=== PATIENT | female | born 1950 | race Caucasian/White ===

== ENCOUNTER → 2020-05-20 17:41 | Outpatient (CLI) | payer MEDICARE, SELFPAY ==
--- NOTE | ~2020-05-20 | MM_ITS ---
EXAMINATION: MM screening [facility] BI w giselle HISTORY: Screening mammogram TECHNIQUE: Craniocaudal and mediolateral oblique 3-D tomosynthesis images were obtained and synthetic 2-D images were generated. CAD analysis was submitted and interpreted. COMPARISON: 11/08/2018, 01/26/2017 BREAST PARENCHYMAL COMPOSITION: There are scattered areas of fibroglandular density. FINDINGS: Scattered benign-appearing calcifications are present. There is no evidence of suspicious m ass, calcification, or architectural distortion to suggest malignancy in either breast. There has bee n no suspicious interval change. IMPRESSION: 1. No mammographic evidence of malignancy. 2. Recommend routine screening mammography in one year. BI-RADS Category 2: Benign finding(s). Reviewed, dictated and finalized at location A. MAKER
== END ==
PROVIDERS: PCP Family Medicine; Visit Provider Obstetrics & Gynecology
DX: Z12.31 Encounter for screening mammogram for malignant neoplasm of breast (principal)
CPT/HCPCS: 77063; 77067

== ENCOUNTER → 2020-11-11 13:25 | Outpatient (CLI) | payer MEDICARE, SELFPAY ==
--- NOTE | ~2020-11-11 | DEXA_ITS ---
Bone Density Report Name: Lillian Segovia Age: 70 Sex: Female Ethnicity: White Date of : 1950 Indication: osteopenia; monitoring treatment; height loss; postmenopausal Referring Provider: Kristi Mejia Study: Bone densitometry was performed. Exam Date: November 11, 2020 Accession number: [id number] Bone Density: Region BMD T-score Z-score Classification AP Spine (L1, L4) 1.240 1.8 3.8 Normal Femoral Neck (Left) 0.729 -1.1 0.6 Osteopenia Total Hip (Left) 0.811 -1.1 0.3 Osteopenia Femoral Neck (Right) 0.754 -0.9 0.8 Normal Total Hip (Right) 0.817 -1.0 0.4 Normal Total Hip Mean 0.814 -1.1 0.4 Osteopenia World Health Organization criteria for BMD impression classify patients as: Normal (T-score at or above -1.0), Osteopenia (T-score between -1.0 and -2.5), or Osteoporosis (T-score at or below -2.5). 10-year Fracture Risk: FRAX not reported because: Treated for osteoporosis Previous Exams: Region Exam Age BMD T-score BMD Change BMD Change Date g/cm2 vs Baseline vs Previous AP Spine(L1, L4) 11/11/2020 70 1.240 1.8 0.053 0.053 11/08/2018 68 1.186 1.4 Total Hip(Left) 11/11/2020 70 0.811 -1.1 0.045 0.045 11/08/2018 68 0.766 -1.4 Total Hip(Right) 11/11/2020 70 0.817 -1.0 0.028 0.028 11/08/2018 68 0.789 -1.3 *Denotes significance at 95% confidence level, LSC for AP Spine = 0.022 g/cm2, LSC for Total Hip = 0.027 g/cm2 Clinical Information Provided by Patient: Is being treated for osteoporosis Has used the following medications: HRT (i.e. estrogen/hormone therapy), Vitamin D, Calcium Patient maximum height was 66 Menopause Age: 56 Onset of menses at age 14 Number of children 2 Impression: The patient has low bone mass, based on the Left Total Hip T-score. No significant bone loss was observed. Discussion: PATIENT UNDER TREATMENT WITH NO SIGNIFICANT BMD LOSS SINCE LAST EXAM. In an untreated patient, BMD typically declines with age. A lack of decline or gain is usually a sign that treatment is efficacious and fracture risk is reduced. It is important to ask patients whether they are taking their medications and to encourage continued and appropriate compliance with their osteoporosis therapies to reduce fracture risk. It is also important to review their risk factors and encourage appropriate calcium and vitamin D intakes, exercise, fall prevention and other lifestyle measures.
== END ==
PROVIDERS: Visit Provider Student in an Organized Health Care Education/Training Program
DX: Z78.0 Asymptomatic menopausal state (principal); M85.852 Other specified disorders of bone density and structure, left thigh; M85.851 Other specified disorders of bone density and structure, right thigh
CPT/HCPCS: 77080

== ENCOUNTER → 2021-07-09 14:20 | Outpatient (CLI) | payer MEDICARE, SELFPAY ==
--- NOTE | ~2021-07-09 | MM_ITS ---
EXAMINATION: MM screening [facility] BI w giselle HISTORY: Screening mammogram TECHNIQUE: Craniocaudal and mediolateral oblique 3-D tomosynthesis images were obtained and synthetic 2-D images were generated. CAD analysis was submitted and interpreted. COMPARISON: 05/2020, 11/08/2018, 01/26/2017 bilateral screening mammogram examinations BREAST PARENCHYMAL COMPOSITION: There are scattered areas of fibroglandular density. FINDINGS: There is no evidence of suspicious mass, calcification, or architectural distortion to sugg est malignancy in either breast. There has been no suspicious interval change. IMPRESSION: 1. No mammographic evidence of malignancy. 2. Recommend routine screening mammography in one year. BI-RADS Category 1: Negative Reviewed, dictated and finalized at location A. E AIDE
== END ==
PROVIDERS: Visit Provider Student in an Organized Health Care Education/Training Program
DX: Z12.31 Encounter for screening mammogram for malignant neoplasm of breast (principal)
CPT/HCPCS: 77063; 77067

== ENCOUNTER → 2023-02-22 13:10 | Outpatient (CLI) | payer MEDICARE, SELFPAY ==
--- NOTE | ~2023-02-22 | DEXA_ITS ---
Bone Density Report Name: NELSON MENDOZA Age: 72 Sex: Female Ethnicity: White Date of : 1950 Indication: osteopenia; height loss; postmenopausal Referring Provider: Kristi Mejia Study: Bone densitometry was performed. Exam Date: February 22, 2023 Accession number: [id number] Bone Density: Region BMD T-score Z-score Classification AP Spine (L1, L4) 1.306 2.4 4.6 Normal Femoral Neck (Left) 0.752 -0.9 0.9 Normal Total Hip (Left) 0.833 -0.9 0.6 Normal Femoral Neck (Right) 0.788 -0.5 1.3 Normal Total Hip (Right) 0.848 -0.8 0.7 Normal Total Hip Mean 0.841 -0.9 0.7 Normal World Health Organization criteria for BMD impression classify patients as: Normal (T-score at or above -1.0), Osteopenia (T-score between -1.0 and -2.5), or Osteoporosis (T-score at or below -2.5). 10-year Fracture Risk: FRAX not reported because: All T-scores for Spine Total, Hip Total, Femoral Neck at or above -1.0 Previous Exams: Region Exam Age BMD T-score BMD Change BMD Change Date g/cm2 vs Baseline vs Previous AP Spine(L1, L4) 02/22/2023 72 1.306 2.4 0.120* 0.066 11/11/2020 70 1.240 1.8 0.053 0.053 11/08/2018 68 1.186 1.4 Total Hip(Left) 02/22/2023 72 0.833 -0.9 0.068* 0.022 11/11/2020 70 0.811 -1.1 0.045 0.045 11/08/2018 68 0.766 -1.4 Total Hip(Right) 02/22/2023 72 0.848 -0.8 0.058* 0.030 11/11/2020 70 0.817 -1.0 0.028 0.028 11/08/2018 68 0.789 -1.3 *Denotes significance at 95% confidence level, LSC for AP Spine = 0.022 g/cm2, LSC for Total Hip = 0.027 g/cm2 Clinical Information Provided by Patient: Has used the following medications: HRT (i.e. estrogen/hormone therapy), Vitamin D, Calcium, ended HRT 06/08 Patient maximum height was 66 Menopause Age: 56 No regular weight bearing exercise Does not regularly consume dairy products Onset of menses at age 14 Number of children 2 Impression: The patient has normal bone mass. No significant bone loss was observed. Discussion: BONE DENSITY IS ABOVE THE MINIMUM DESIRABLE LEVEL AT ALL SKELETAL SITES TESTED. This patient?s bone mineral density is above the minimum desirable level (T-score -1.0 or better) at all sites measured. The patient should follow a healthful lifestyle (good nutrition with adequate calcium and vitamin D, and appropriate weight-bearing exercise).
--- NOTE | ~2023-02-22 | MM_ITS ---
EXAMINATION: MM screening [facility] BI w giselle HISTORY: Screening mammogram TECHNIQUE: Craniocaudal and mediolateral oblique 3-D tomosynthesis images were obtained and synthetic 2-D images were generated. CAD analysis was submitted and interpreted. COMPARISON: July 09, 2021, May 20, 2020, November 08, 2018 bilateral screening mammogram examinati ons BREAST PARENCHYMAL COMPOSITION: There are scattered areas of fibroglandular density. FINDINGS: There is no evidence of suspicious mass, calcification, or architectural distortion to sugg est malignancy in either breast. There has been no suspicious interval change. IMPRESSION: 1. No mammographic evidence of malignancy. 2. Recommend routine screening mammography in one year. BI-RADS Category 1: Negative Reviewed, dictated and finalized at location A.
== END ==
PROVIDERS: PCP Family Medicine; Visit Provider Family Medicine
DX: Z12.31 Encounter for screening mammogram for malignant neoplasm of breast (principal); Z78.0 Asymptomatic menopausal state
CPT/HCPCS: 77063; 77067; 77080

== ENCOUNTER 2023-06-30 14:15 | Outpatient (RCR) | payer MEDICARE, SELFPAY ==
--- NOTE | 2023-06-03 08:57 | OPREHPOC ---
Outpatient Therapy Plan of Care This is a Multidisciplinary Plan of Care that may contain components documented by all disciplines (PT, OT, and ST.) PT Problem 1 PT Problem #1 Knowledge Deficit PT Goal 1 Goal 1* indep with HEP PT Problem 2 PT Problem #2 Pain PT Goal 1 Goal 1* pt report NO pain in R lateral knee 2* with palpation over R ITB, minimal spasms noted PT Problem 3 PT Problem #3 Impaired Flexibility PT Goal 1 Goal increase flexibility of R hip and knee, to improve position of knee 1* anterior hip-quad length with prone knee flexion to 110' 2* prone hip extension 5' PT Problem 4 PT Problem #4 Impaired Strength PT Goal 1 Goal increase strength of R hip and knee, to improve mobility and support to knee/hip joints 1* mat exercises x 20 reps with good control
--- NOTE | 2023-06-03 08:57 | PTOPEVAL1 ---
Assessment and note entered by Yeni Taylor, PT Evaluation Information Assessment Status Evaluation Diagnosis R knee pain Onset Mar 2023 Subjective Information tightness and pain in R knee; sometimes feels funny; can do everything, but it hurts; saw and xrays were perfect- told her tendonitis; no trauma or injury to leg; Activity level--indep with all home and self care tasks; is not doing any leg exercises; have not been as active lately, have exercise bike in the garage, going to get it moved into the house Reported Pain Level Pain Score Self Report Additional Pain Score Comments pain range in the past week 0-1/10, sharp shooting pain over R lateral knee, short duration annoying pain, sometimes up side of leg to hip; stiff and tight-- no pattern for shooting pain; just wait a minute and pain gone; no issues with sleeping; not using heat, ice or meds- instruct on PRN use of heat 10-15 min with walking, no issues with knee, but limited by L ankle arthritis Assessment PT Clinical Summary Lillian has the diagnosis of R knee pain. Her history includes TKR, with gradual increase in knee pain, no trauma or injury to leg. She is active and able to do all of her activities, but knee pain is annoying. Also has arthritis in L ankle which limits her walking time. She does work in office work 4 hours/day. Self assessment with the LE functional scale score of 69/80. With the evaluation, she has poor standing position of LE's; tightness & pain over R ITB, anterior hip-quad, with weakness of both R and L LE's; Skilled PT services are indicated for modalities to decrease pain and tightness over R ITB; therapeutic exercises to increase strength and flexibility of hip and education for HEP and posture correction. Plan of Care Interventions Electrical Stimulation,Hot Pack/Cold Pack,Manual Therapy,Neuro Re-education,Patient Education,Thera
--- NOTE | 2023-06-30 14:49 | PTOPDC ---
Assessment and note entered by Yeni Taylor, PT Discharge Information Assessment Status Discharge Diagnosis R knee pain Onset Mar 2023 Subjective Information am doing much better, knee not tight; have been doing exercises at home; have been using massage gun on the side of leg and it helps, not as tender over the side muscle; Reported Pain Level Pain Score 0: Self Report Additional Pain Score Comments no pain in the past week; with pressure over lateral distal ITB and hamstring distal lateral, pain increase to 5/10; Assessment PT Clinical Summary Lillian has received a total of 8 PT sessions. Compared to the initial evaluation: pain is decreased lateral thigh and knee, but still has spasms and tenderness over mid to distal ITB and distal lateral hamstring; increase flexibility of anterior hip/quad with prone knee flexion- now equal to R and 105';still have decreased hip extension ROM; increase strength with mat and standing exercises; education completed for HEP and self management of pain. The goals were achieved, except R hip extension ROM and anterior hip/quad length with prone knee flexion. Discharge PT services. She is to continue with her HEP. Plan of Care PT Services Indicated No
== END 2023-06-30 14:57 | disposition home or self-care (01) ==
LOC: ANHPT 14:15
PROVIDERS: PCP Family Medicine
DX: M25.561 Pain in right knee (principal)
CPT/HCPCS: 97110; 97140; 97161; 97530

== ENCOUNTER 2024-03-21 01:08 | Day surgery (SDC) | payer MEDICARE, SELFPAY ==
[2024-03-10 09:58] VITALS: BMI 34.3
[2024-03-21 08:24] VITALS: BP 155/94; PULSE 63; RESP 18; TEMP 36.2; O2SAT 100
[2024-03-21] MEDS: LACTATED RINGERS 1,000 ML 150 ML IV CONT (08:36)
--- NOTE | 2024-03-21 09:00 | WPDANESEPPF ---
Anes - Initial Pre Proc Eval Procedure: Operation Date: 03/21/24 09:30 Proposed Procedures p Colonoscopy - Yovanny Landa MD Date/Time: 03/21/24 09:00 Surgeon: Yovanny Landa MD Pre Op Diagnosis: Personal history colon polyps Patient Data Age: 73 Gender: F Height: 1.63 m Weight: 90.1 kg Last Vital Signs Temp 36.2 C L 03/21/24 08:24 Pulse 63 03/21/24 08:24 Resp 18 03/21/24 08:24 BP 155/94 H 03/21/24 08:24 Pulse Ox 100 03/21/24 08:24 O2 Del Method Room Air 03/21/24 08:24 Allergies Allergy/AdvReac Type Severity Reaction Status Date / Time No Known Allergies Allergy Verified 03/21/24 08:22 Home Medications Medication Instructions Recorded Confirmed Type mecobalamin (vitamin B12) 1,000 1,000 mcg sublingual DAILY 04/10/19 03/21/24 History mcg disintegrating tablet,sublingual vitamin B complex (Super B-50 1 cap PO DAILY 04/10/19 03/21/24 History Complex capsule) cholecalciferol (vitamin D3) 125 125 mcg PO DAILY 03/05/20 03/21/24 History mcg (5,000 unit) capsule calcium carbonate 600 mg PO DAILY 10/22/20 03/21/24 History losartan 100 mg tablet See Rx Instructions .Route 05/03/23 03/21/24 Rx .COMPLEX #90 tabs pantoprazole 40 mg tablet,delayed 40 mg PO QAM #90 tabs 08/05/23 03/21/24 Rx release rosuvastatin 5 mg tablet See Rx Instructions .Route 09/28/23 03/21/24 Rx .COMPLEX #90 tabs metoprolol succinate 25 mg 25 mg PO DAILY #90 tabs 02/14/24 03/21/24 Rx tablet,extended release 24 hr magnesium 250 mg tablet 250 mg PO DAILY 03/10/24 03/21/24 History turmeric 400 mg capsule 800 mg PO DAILY 03/10/24 03/21/24 History Patient hx anesthesia problems: none Family hx anesthesia problems: none Results Review: All pre-operative results and documents have been reviewed as part of the pre-operative evaluation. [facility] Past Medical History Medical History Chronic GERD Essential hypertension Hormone replacement therapy (HRT) Hypertensive CKD (chronic kidney disease) Osteopenia determined by x-ray Surgical History Surgical History History of bilateral knee replacement History of colonoscopy with polypectomy 11/29/2018 Family History Family History Father Family history of malignant neoplasm Mother Breast cancer Social History Social History Smoking status: Former smoker Tobacco type: cigarettes Second hand tobacco smoke exposure: No Smoking end date: 05/17/78 Alcohol intake: never Substance use: never Substance use type: does not use Living arrangements: with family Occupation/Education: retired Gender identity (if verbalized by the patient): Female Sexual Orientation (if Verbalized by the Patient): Straight or Heterosexual Spiritual care concerns: No Anes - Eval Final PreProcedure Day of Procedure 03/21/24 09:00 Patient weight: obese Heart: regular rate and rhythm Lungs: clear to auscultation Airway: Mallampati scale class II Neurological: alert and oriented Last oral intake: >/= 8 hours ASA classification: III Emergent: no Anesthetic plan: proceed Anesthesia type and monitoring: general GIVS and standard monitoring Results Review: All pre-operative results and documents have been reviewed as part of the pre-operative evaluation. Informed Consent: The patient's anesthetic plan and its attendant risks and benefits were discussed with the patient/family/POA. Questions were solicited and answers provided to the satisfaction of the patient/family/POA.
--- NOTE | 2024-03-21 09:12 | PM.HPGS ---
History of Present Illness History of Present Illness Consent: Risks, benefits, and alternatives have been discussed and questions answered. Patient agrees to proceed with procedure. Chief complaint: Personal history colon polyps Narrative: Lillian Segovia is a 73 year old female with colon polyp in 2019 Review of Systems Review of Systems: All systems reviewed & are unremarkable except as noted in HPI and below PMFSH Past Medical History Medical History Chronic GERD Essential hypertension Hormone replacement therapy (HRT) Hypertensive CKD (chronic kidney disease) Osteopenia determined by x-ray Surgical History Surgical History History of bilateral knee replacement History of colonoscopy with polypectomy 11/29/2018 Family History Family History Father Family history of malignant neoplasm Mother Breast cancer Social History Social History Smoking status: Former smoker Tobacco type: cigarettes Second hand tobacco smoke exposure: No Smoking end date: 05/17/78 Alcohol intake: never Substance use: never Substance use type: does not use Living arrangements: with family Occupation/Education: retired Gender identity (if verbalized by the patient): Female Sexual Orientation (if Verbalized by the Patient): Straight or Heterosexual Spiritual care concerns: No Meds Home Medications and Allergies Home Medications Medication Instructions Recorded Confirmed Type mecobalamin (vitamin B12) 1,000 1,000 mcg sublingual DAILY 04/10/19 03/21/24 History mcg disintegrating tablet,sublingual vitamin B complex (Super B-50 1 cap PO DAILY 04/10/19 03/21/24 History Complex capsule) cholecalciferol (vitamin D3) 125 125 mcg PO DAILY 03/05/20 03/21/24 History mcg (5,000 unit) capsule calcium carbonate 600 mg PO DAILY 10/22/20 03/21/24 History losartan 100 mg tablet See Rx Instructions .Route 05/03/23 03/21/24 Rx .COMPLEX #90 tabs pantoprazole 40 mg tablet,delayed 40 mg PO QAM #90 tabs 08/05/23 03/21/24 Rx release rosuvastatin 5 mg tablet See Rx Instructions .Route 09/28/23 03/21/24 Rx .COMPLEX #90 tabs metoprolol succinate 25 mg 25 mg PO DAILY #90 tabs 02/14/24 03/21/24 Rx tablet,extended release 24 hr magnesium 250 mg tablet 250 mg PO DAILY 03/10/24 03/21/24 History turmeric 400 mg capsule 800 mg PO DAILY 03/10/24 03/21/24 History Allergies Allergy/AdvReac Type Severity Reaction Status Date / Time No Known Allergies Allergy Verified 03/21/24 08:22 Vital Signs Vital Signs - 24 hr 03/21/24 08:24 Temperature 97.2 F L Pulse Rate 63 Respiratory Rate 18 Blood Pressure 155/94 H Pulse Oximetry 100 Oxygen Delivery Room Air Exam Const: General: comfortable and no acute distress HENMT: Face/Nose/Sinus: Normal nares present Eyes: General: appearance normal, both eyes and all related structures Neck: Neck: no JVD Resp: Auscultation: clear to auscultation bilaterally Cardio: Rate: regular rate Rhythm: regular rhythm GI: Inspection: non-distended GI Palp: Yes Soft to palpation Skin: General skin exam: normal color Neuro: General: gait normal Speech: normal speech Extrem: General: normal to inspection Psych: Mental Status: mental status grossly normal Assessment and Plan Assessment and plan (1) Personal history of colonic polyps: Code(s): Z86.010 - Personal history of colon polyps Status: Chronic Assessment and Plan: colonoscopy
[2024-03-21 09:37] VITALS: BP 117/56; PULSE 68; RESP 22; O2SAT 100
[2024-03-21 09:47] VITALS: BP 122/66; PULSE 65; RESP 20; O2SAT 100
[2024-03-21 09:57] VITALS: BP 132/74; PULSE 57; RESP 17; O2SAT 100
== END 2024-03-21 10:04 | disposition home or self-care (01) ==
PROVIDERS: PCP Family Medicine; Visit Provider Internal Medicine Gastroenterology
PROC: 0DJD8ZZ Inspection of Lower Intestinal Tract, Via Natural or Artificial Opening Endoscopic (ICD-10-PCS; CPT 45378; principal; 2024-03-21 09:30)
DX: Z12.11 Encounter for screening for malignant neoplasm of colon (principal); K64.8 Other hemorrhoids; K57.30 Diverticulosis of large intestine without perforation or abscess without bleeding; K21.9 Gastro-esophageal reflux disease without esophagitis; I12.9 Hypertensive chronic kidney disease with stage 1 through stage 4 chronic kidney disease, or unspecified chronic kidney disease; N18.9 Chronic kidney disease, unspecified; M85.88 Other specified disorders of bone density and structure, other site; E66.9 Obesity, unspecified; Z68.34 Body mass index [BMI] 34.0-34.9, adult; Z79.890 Hormone replacement therapy; Z98.890 Other specified postprocedural states; Z87.891 Personal history of nicotine dependence; Z86.0100 Personal history of colon polyps, unspecified; Z80.3 Family history of malignant neoplasm of breast
CPT/HCPCS: G0105; J2003; J2704; J7120

== ENCOUNTER 2024-04-08 10:52 | Outpatient (CLI) | payer MEDICARE, SELFPAY ==
--- NOTE | ~2024-04-08 | MM_ITS ---
EXAMINATION: MM screening [facility] BI w giselle HISTORY: Screening mammogram TECHNIQUE: Craniocaudal and mediolateral oblique 3-D tomosynthesis images were obtained and synthetic 2-D images were generated. CAD analysis was submitted and interpreted. COMPARISON: 02/22/2023, 07/09/2021 bilateral screening mammogram examinations BREAST PARENCHYMAL COMPOSITION: There are scattered areas of fibroglandular density. FINDINGS: There is no evidence of suspicious mass, calcification, or architectural distortion to sugg est malignancy in either breast. There has been no suspicious interval change. IMPRESSION: 1. No mammographic evidence of malignancy. 2. Recommend routine screening mammography in one year. BI-RADS Category 1: Negative Reviewed, dictated and finalized at location A. RUMENT AND CONTROLS TECHNICIAN
== END 2024-04-08 10:53 | disposition home or self-care (01) ==
LOC: MICIMG 10:53
PROVIDERS: PCP Family Medicine; Visit Provider Family Medicine
DX: Z12.31 Encounter for screening mammogram for malignant neoplasm of breast (principal)
CPT/HCPCS: 77063; 77067

== ENCOUNTER 2025-04-10 09:17 | Outpatient (CLI) | payer MEDICARE, SELFPAY ==
--- NOTE | ~2025-04-10 | MM_ITS ---
EXAMINATION: MM screening [facility] w giselle HISTORY: Screening TECHNIQUE: Craniocaudal and mediolateral oblique 3-D tomosynthesis images were obtained and synthetic 2-D images were generated. CAD analysis was submitted and interpreted. COMPARISON: Comparison to multiple prior studies sequentially, with oldest reviewed study dated 02/22/2023. BREAST PARENCHYMAL COMPOSITION: Not dense: There are scattered areas of fibroglandular density. FINDINGS: There are developing focal asymmetries laterally in both breasts on CC view, middle third. There are no suspicious calcifications or architectural distortion. IMPRESSION: 1. Developing bilateral breast asymmetries. 2. Additional mammographic views and possible breast ultrasound are recommended. BI-RADS Category 0: Incomplete: Needs additional imaging evaluation. Reviewed, dictated and finalized at location O. R PRESS OPERATOR IMPRESSION: 1. Developing bilateral breast asymmetries. 2. Additional mammographic views and possible breast ultrasound are recommended . BI-RADS Category 0: Incomplete: Needs additional imaging evaluation.
== END 2025-04-10 09:18 | disposition home or self-care (01) ==
LOC: MICIMG 09:17
PROVIDERS: PCP Family Medicine; Visit Provider Family Medicine
DX: Z12.31 Encounter for screening mammogram for malignant neoplasm of breast (principal); R92.8 Other abnormal and inconclusive findings on diagnostic imaging of breast
CPT/HCPCS: 77063; 77067